=== PATIENT | male | born 1995 | race African-American/Black ===

== ENCOUNTER 2016-08-02 22:19 | Emergency (ER) | payer OTHER ==
[~2016-08-02] VITALS: Ht 172.7 cm; Wt 113.0 kg
[~2016-08-02 22:19] MED LIST: IBUP800T23 PO
[2016-08-02 22:21] VITALS: BP 162/68; PULSE 55; RESP 16; TEMP 99.2; O2SAT 99
[2016-08-03 00:32] LABS: AUTOMATED NEUTROPHIL # 2.7 TH/MM3 (1.8-7.7); BASOPHIL % 0.6 % (0.0-2.0); EOSINOPHIL # 0.1 TH/MM3 (0-0.4); EOSINOPHIL % 1.3 % (0.0-4.0); HEMATOCRIT 42.8 % (39.0-51.0); HEMO FLAGS DIFF FINAL; LYMPH % 36.1 % (9.0-44.0); LYMPHOCYTE # 1.8 TH/MM3 (1.0-4.8); MEAN CELL VOLUME 81.2 FL (80.0-100.0); MEAN CORPUSCULAR HEMOGLOBIN 27.4 PG (27.0-34.0); MEAN CORPUSCULAR HGB CONC 33.7 % (32.0-36.0); MONO % 7.7 % (0.0-8.0); NEUT % 54.3 % (16.0-70.0); PLATELET COUNT 172 TH/MM3 (150-450); RED BLOOD COUNT 5.26 MIL/MM3 (4.50-5.90); WHITE BLOOD COUNT 4.9 TH/MM3 (4.0-11.0)
--- NOTE | 2016-08-03 00:33 | RADRPT ---
EXAM DATE/TIME: 08/02/2016 23:42 [place] COMPARISON: No previous studies available for comparison. INDICATIONS : Head tingling x1 month. RADIATION DOSE: 56.35 CTDIvol (mGy) MEDICAL HISTORY : None SURGICAL HISTORY : Tonsillectomy. ENCOUNTER: Initial ACUITY: 1 month PAIN SCALE: 0/10 LOCATION: cranial TECHNIQUE: Multiple contiguous axial images were obtained of the head. Using automated exposure control and adj ustment of the mA and/or kV according to patient size, radiation dose was kept as low as reasonably a chievable to obtain optimal diagnostic quality images. FINDINGS: CEREBRUM: The ventricles are normal for age. No evidence of midline shift, mass lesion, hemorrhage or acute in farction. No extra-axial fluid collections are seen. POSTERIOR FOSSA: The cerebellum and brainstem are intact. The 4th ventricle is midline. The cerebellopontine angle i s unremarkable. EXTRACRANIAL: The visualized portion of the orbits is intact. SKULL: The calvaria is intact. No evidence of skull fracture. CONCLUSION: No acute disease. Josue Ibanez MD on August 03, 2016 at 0:31 Board Certified Radiologist. This report was verified electronically.
[2016-08-03 00:53] LABS: ALKALINE PHOSPHATASE 45 U/L (45-117); TOTAL BILIRUBIN ADULT 0.7 MG/DL (0.2-1.0)
[2016-08-03 00:56] LABS: ALT (GPT) 42 U/L (12-78); ANION GAP 7 MEQ/L (5-15); AST (GOT) 42 U/L (15-37); BICARBONATE 27.1 MEQ/L (21.0-32.0); BLOOD UREA NITROGEN 16 MG/DL (7-18); CHLORIDE 106 MEQ/L (98-107); GLOMERULAR FILTRATION RATE 79 ML/MIN (>89); SODIUM (NA) 140 MEQ/L (136-145)
--- NOTE | 2016-08-03 00:58 | PD ---
HPI Chief Complaint: Headache Time Seen by Provider: 22:55 Travel History International Travel<30 days: No Contact w/Intl Traveler<30days: No Traveled to known affect area: No History of Present Illness HPI To 21-year-old male presents emergent from complaining of intermittent numbness tingling left eye twitching's been ongoing for the past month or so. Not sure what's causing it. He's been under more stress. He's been diagnosed with anxiety in the past. He otherwise has been feeling generally well and healthy. Denies any stimulant use. No history of previous similar problems. No other complaints. History Past Medical History Narrative Medical Sleep apnea in the past Social History Alcohol Use: Yes (OCC) Tobacco Use: No Allergies-Medications (Allergen,Severity, Reaction): Coded Allergies: No Known Allergies (Unverified , 08/02/16) Reported Meds & Prescriptions Reported Meds & Active Scripts Active Ibuprofen 800 Mg Tab 800 Mg PO Q8 PRN Review of Systems Except as stated in HPI: all other systems reviewed are Neg Physical Exam Narrative GENERAL: Well-appearing 21 year-old woman, no acute distress. SKIN: Focused skin assessment warm/dry. NECK: Trachea midline. No JVD. CARDIOVASCULAR: Regular rate and rhythm. No murmur appreciated. RESPIRATORY: No accessory muscle use. Clear to auscultation. Breath sounds equal bilaterally. GASTROINTESTINAL: Abdomen soft, non-tender, nondistended. Hepatic and splenic margins not palpable. MUSCULOSKELETAL: No obvious deformities. No edema. NEUROLOGICAL: Awake and alert. No obvious cranial nerve deficits. Motor grossly within normal limits. Normal speech. PSYCHIATRIC: Appropriate mood and affect; insight and judgment normal. Data Data Last Documented VS Vital Signs Date Time Temp Pulse Resp B/P Pulse Ox O2 Delivery O2 Flow Rate FiO2 08/02/16 22:21 99.2 55 16 162/[address] Brain W/O Iv Contrast(Rout) (08/02/16 ) Complete Blood Count With Diff (08/02/16 23:13) Comprehensive Metabolic Panel (08/02/16 23:13) Labs Laboratory Tests Test 08/02/16 23:25 White Blood Count 4.9 TH/MM3 Red Blood Count 5.26 MIL/MM3 Hemoglobin 14.4 GM/DL Hematocrit 42.8 % Mean Corpuscular Volume 81.2 FL Mean Corpuscular Hemoglobin 27.4 PG Mean Corpuscular Hemoglobin 33.7 % Concent Red Cell Distribution Width 14.0 % Platelet Count 172 TH/MM3 Mean Platelet Volume 10.0 FL Neutrophils (%) (Auto) 54.3 % Lymphocytes (%) (Auto) 36.1 % Monocytes (%) (Auto) 7.7 % Eosinophils (%) (Auto) 1.3 % Basophils (%) (Auto) 0.6 % Neutrophils # (Auto) 2.7 TH/MM3 Lymphocytes # (Auto) 1.8 TH/MM3 Monocytes # (Auto) 0.4 TH/MM3 Eosinophils # (Auto) 0.1 TH/MM3 Basophils # (Auto) 0.0 TH/MM3 CBC Comment DIFF FINAL Differential Comment Total Bilirubin 0.7 MG/DL Alkaline Phosphatase 45 U/L Total Protein 8.2 GM/DL [facility] Medical Decision Making Medical Screen Exam Complete: Yes Emergency Medical Condition: Yes Interpretation(s) CT head: Negative LABS: CBC is unremarkable CMP is unremarkable Differential Diagnosis Blepharospasm, mass, bleed, anxiety, electrolyte abnormality, other Narrative Course Medical decision making Is well 21 year-old woman presents emergency Department with left-sided facial numbness and left eye twitching. On exam he has normal sensation is intact to light touch and symmetric bilaterally. He has no spasms now. He looks otherwise well. Recommend outpatient follow-up. Diagnosis Primary Impression: Blepharospasm Additional Instructions: Follow-up with your primary doctor for not fully well in the next one to 2 weeks. Return to the emergency department for any new or worsening symptoms. Disposition: 01 DISCHARGE HOME Condition: Stable Evan Gonzales MD Aug 03, 2016 00:58
[2016-08-03 01:27] VITALS: BP 138/70
== END 2016-08-03 01:29 | disposition home or self-care (01) ==
LOC: NEPC 22:19
DX: G24.5 Blepharospasm (principal)
CPT/HCPCS: 70450; 80053; 85025